=== PATIENT | male | born 1955 | race African-American/Black ===

== ENCOUNTER 2021-07-17 00:26 | Emergency (ER) | payer MEDICARE, MEDICAID ==
[~2021-07-17] VITALS: Ht 188 cm; Wt 85.0 kg
[~2021-07-17 00:26] MED LIST: NONE REPORTED
[2021-07-17] MEDS ORDERED: ZIPRASIDONE HCL 20MG CAPSULE PO STA (01:12)
[2021-07-17] MEDS ORDERED: LORAZEPAM 1MG TABLET PO ONE (01:15)
[2021-07-17 02:47] LABS: BASOPHILS % 0.1 % (0.0-2.0); HEMATOCRIT. 35.5 % (42.0-52.0); HEMOGLOBIN. 11.9 g/dL (14.0-18.0); LYMPHOCYTES % 8.2 % (20.0-50.0); MEAN CORPUSCULAR HEMOGLOBIN 29.6 pg (28.0-32.0); MEAN CORPUSCULAR VOLUME 88.3 fL (80.0-94.0); MEAN PLATELET VOLUME 7.7 fl (7.4-10.4); NEUTROPHILS % 82.7 % (40.0-76.0); PLATELET 330 x1000/uL (130-400); RED BLOOD CELL COUNT 4.02 mill/uL (4.7-6.1); RED CELL DISTRIBUTION WIDTH 14.7 % (11.6-14.6)
[2021-07-17 02:52] LABS: CHLORIDE 101 mEq/L (98-107)
[2021-07-17 02:56] LABS: ETHANOL BLOOD < 10 mg/dL
[2021-07-17 07:39] LABS: CLARITY URINE CLEAR (CLEAR); COLOR URINE YELLOW (YELLOW); KETONES URINE NEGATIVE (NEGATIVE); LEUKOCYTE ESTERASE URINE NEGATIVE (NEGATIVE); NITRITE URINE NEGATIVE (NEGATIVE); OCCULT BLOOD URINE NEGATIVE (NEGATIVE); PH URINE 6.5 (4.5-8.0); PROTEIN URINE TRACE (NEGATIVE)
[2021-07-17 08:00] VITALS: BP 150/91
[2021-07-17 08:05] LABS: *AMPHETAMINES SCREEN URINE PRESUMTIVE POSITIVE (NEGATIVE); *BARBITURATES SCREEN URINE NEGATIVE (NEGATIVE); *BENZODIAZEPINES SCREEN URINE NEGATIVE (NEGATIVE); *COCAINE SCREEN URINE NEGATIVE (NEGATIVE); CANNABINOID URINE SCREEN NEGATIVE (NEGATIVE); METHADONE URINE SCREEN NEGATIVE (NEGATIVE); OPIATES URINE SCREEN NEGATIVE (NEGATIVE); PHENCYCLIDINE URINE SCREEN NEGATIVE (NEGATIVE)
== END 2021-07-17 09:10 | disposition home or self-care (01) ==
LOC: ER 00:26
DX: F29 Unspecified psychosis not due to a substance or known physiological condition (principal); F20.9 Schizophrenia, unspecified; Z20.822 Contact with and (suspected) exposure to COVID-19
CPT/HCPCS: 36415; 80053; 80305; 80307; 80320; 80329; 81003; 85025; 93005; 99284; C9803; U0003; U0005; G0480